=== PATIENT | female | born 1985 | race Caucasian/White ===

== ENCOUNTER → 2019-02-10 | Outpatient (CLI) | payer OTHER ==
[2019-02-10 15:07] LABS: ALBUMIN 3.4 g/dL (3.4-5.0); ALBUMIN/GLOBULIN RATIO 0.7 (1.0-1.7); ALK PHOS 78 U/L (46-116); ALT (SGPT) 28 U/L (14-59); ANION GAP 8 (6-14); AST (SGOT) 25 U/L (15-37); BLOOD UREA NITROGEN 9 mg/dL (7-20); BUN/CREATININE RATIO 11 (6-20); CALCIUM 9.3 mg/dL (8.5-10.1); CARBON DIOXIDE 29 mmol/L (21-32); CHLORIDE 100 mmol/L (98-107); CREATININE 0.8 mg/dL (0.6-1.0); DIG 1.7 ng/dL (0.9-2.0); GFR 82.1; GLUCOSE 77 mg/dL (70-99); MAGNESIUM 1.9 mg/dL (1.8-2.4); POTASSIUM 4.6 mmol/L (3.5-5.1); SODIUM 137 mmol/L (136-145); TOTAL BILIRUBIN 0.2 mg/dL (0.2-1.0)
== END | disposition home or self-care (01) ==
LOC: LAB 13:56
PROVIDERS: ATTEND Internal Medicine Cardiovascular Disease
DX: I47.1 Supraventricular tachycardia (principal)
CPT/HCPCS: 36415; 80053; 80162; 83735

== ENCOUNTER → 2019-02-24 | Outpatient (CLI) | payer OTHER ==
--- NOTE | 2019-02-24 08:50 | CARD ---
MR#: [id number] Date of Study: 02/24/2019 Ordering Physician: LULI AYALA, Referring Physician: LULI AYALA, Tech: Ambar Whittington [facility] APPROVED REPORT EXAM: Two-dimensional and M-mode echocardiogram with Doppler and color Doppler. Other Information Quality : AverageHR: 87bpm Rhythm : NSR INDICATION Arrhythmia 2D DIMENSIONS RVDd2.4 (2.9-3.5cm)Left Atrium(2D)3.1 (1.6-4.0cm) IVSd0.6 (0.7-1.1cm)Aortic Root(2D)2.3 (2.0-3.7cm) LVDd4.5 (3.9-5.9cm)LVOT Diameter1.9 (1.8-2.4cm) PWd0.7 (0.7-1.1cm)LVDs2.9 (2.5-4.0cm) FS (%) 35.2 %SV60.9 ml LVEF(%)64.6 (>50%) M-Mode DIMENSIONS Left Atrium(MM)2.34 (2.5-4.0cm)Aortic Root2.52 (2.2-3.7cm) Aortic Valve AoV Peak Shakir.151.6cm/sAoV VTI30.2cm AO Peak GR.9.2mmHgLVOT Peak Shakir.109.9cm/s LVOT VTI 23.81cmAO Mean GR.4mmHg ELO (VMAX)1.68he9AXB (VTI)2.13cm2 Mitral Valve MV E Etnjfodd92.9cm/sMV DECEL TYOW787ms MV A Wqmsbprs13.5cm/sE/A Ratio1.4 Pulmonary Valve PV Peak Vuesutgd259.3cm/sPV Peak Grad.5mmHg Pulmonary Vein S1 Ofprsafj69.3cm/sD2 Tyqazome51.2cm/s LEFT VENTRICLE The left ventricle is normal size. There is normal left ventricular wall thickness. The left ventricu lar systolic function is normal. The Ejection Fraction is 60-65%. There is normal LV segmental wall m otion. The left ventricular diastolic function and filling is normal for age. RIGHT VENTRICLE The right ventricle is normal size. There is normal right ventricular wall thickness. The right ventr icular systolic function is normal. ATRIA The left atrium size is normal. The right atrium size is normal. The interatrial septum is intact wit h no evidence for an atrial septal defect or patent foramen ovale as noted on 2-D or Doppler imaging. AORTIC VALVE The aortic valve is probably trileaflet. The aortic valve is not well visualized. Doppler and Color F low revealed no significant aortic regurgitation. There is no significant aortic valvular stenosis. MITRAL VALVE The mitral valve is normal in structure and function. There is no evidence of mitral valve prolapse. There is no mitral valve stenosis. Doppler and Color-flow revealed trace mitral regurgitation. TRICUSPID VALVE The tricuspid valve is normal in structure and function. Doppler and Color Flow revealed no tricuspid valve regurgitation noted. There is no tricuspid valve prolapse or vegetation. There is no tricuspid valve stenosis. PULMONIC VALVE The pulmonic valve is not well visualized. GREAT VESSELS The aortic root is normal in size. The ascending aorta is normal in size. The IVC is normal in size a nd collapses >50% with inspiration. PERICARDIAL EFFUSION There is no evidence of significant pericardial effusion. Critical Notification Critical Value: No <Conclusion> The left ventricular systolic function is normal. The Ejection Fraction is 60-65%. There is normal LV segmental wall motion. Doppler and Color-flow revealed trace mitral regurgitation. There is no evidence of significant pericardial effusion. Signed by : Krystian Dee, Electronically Approved : 02/24/2019 08:49:33
== END | disposition home or self-care (01) ==
LOC: ECHO 07:22 → EDUNIT# 08:00
PROVIDERS: ATTEND Internal Medicine Cardiovascular Disease
DX: I47.1 Supraventricular tachycardia (principal)
CPT/HCPCS: 93306

== ENCOUNTER → 2019-05-26 | Outpatient (CLI) | payer OTHER ==
--- NOTE | 2019-05-27 08:22 | RAD ---
PROCEDURE: KNEE RIGHT 3V STUDY DATE: 05/27/2019 CLINICAL INDICATION / HISTORY: Right knee pain after twisting injury. TECHNIQUE: AP, lateral, and oblique views of the right knee. COMPARISON: None FINDINGS: The osseous structures are intact. The articular surfaces are smooth. The joint space is maintained. No intra-articular loose bodies. The alignment is within normal limits. The soft tissues are unremarkable. No obvious joint effusion. No radio-opaque foreign bodies are identified. IMPRESSION: No fracture or dislocation is identified. Electronically signed by: Bk Woodson MD (05/27/2019 8:19 AM) [facility]
== END | disposition home or self-care (01) ==
LOC: LAB 18:52
PROVIDERS: ATTEND Family Medicine
DX: M25.561 Pain in right knee (principal)
CPT/HCPCS: 73562

== ENCOUNTER → 2020-03-29 | Outpatient (CLI) | payer OTHER ==
--- NOTE | 2020-03-29 18:37 | RAD ---
Examination: FOOT LEFT 3V History: Reason: Left foot pain and swelling, no trauma / Spl. Instructions: / History: Comparison/Correlation: None Findings: 3 views of the left foot were obtained. Joint spaces are normal. No fracture or bony destruction. Soft tissues are unremarkable. No significant degenerative findings for patient's age. Impression: No suspicious process. Electronically signed by: Marco Tamayo MD (03/29/2020 6:35 PM) [facility]
== END ==
LOC: RAD 17:54
PROVIDERS: ATTEND Physician Assistant
DX: M79.672 Pain in left foot (principal)
CPT/HCPCS: 73630

== ENCOUNTER → 2020-07-15 | Outpatient (CLI) | payer OTHER ==
--- NOTE | 2020-07-15 18:36 | RAD ---
Exam: CT head and maxillofacial without contrast INDICATION: Fall 3 weeks ago, pain across forehead TECHNIQUE: Sequential axial images through the head and face were obtained without the administration of IV contrast. Comparisons: None FINDINGS: Head: No focal parenchymal lesion or hemorrhage is identified. There is no midline shift or sulcal effaceme nt. No acute vascular territory infarction is identified. Young-white distinction is preserved. The ventricular system is within normal limits without compression hydrocephalus. The basal cisterns are well maintained. Face: Globes and orbital contents are normal. The visualized portions of the paranasal sinuses and mastoid air cells are well-pneumatized. No acute fractures. IMPRESSION: 1. No acute intracranial abnormality. 2. No acute traumatic injury identified at the face. Exposure: One or more of the following in the visualized dose reduction techniques were utilized for this examination: 1. Automated exposure control 2. Adjustment of the MA and/or KV according to patient size Use of iterative of reconstructive technique Electronically signed by: Lindsay Sosa MD (07/15/2020 6:34 PM) [facility]
== END ==
LOC: DXRAD 18:01
PROVIDERS: ATTEND Nurse Practitioner Family
DX: R51.9 Headache, unspecified (principal)
CPT/HCPCS: 70450; 70486

== ENCOUNTER → 2020-08-02 | Outpatient (CLI) | payer OTHER ==
--- NOTE | 2020-08-02 18:54 | CARD ---
MR#: [id number] Date of Study: 08/02/2020 Ordering Physician: LULI AYALA, Referring Physician: LULI AYALA, Tech: Julee Worley, [facility] APPROVED REPORT EXAM: Two-dimensional and M-mode echocardiogram with Doppler and color Doppler. Other Information Quality : AverageHR: 99bpm INDICATION Palpitations 2D DIMENSIONS RVDd2.2 (2.9-3.5cm)Left Atrium(2D)2.3 (1.6-4.0cm) IVSd0.8 (0.7-1.1cm)Aortic Root(2D)2.5 (2.0-3.7cm) LVDd4.5 (3.9-5.9cm)LVOT Diameter1.9 (1.8-2.4cm) PWd0.7 (0.7-1.1cm)LVDs2.8 (2.5-4.0cm) FS (%) 36.8 %SV61.5 ml LVEF(%)66.7 (>50%) Aortic Valve AoV Peak Shakir.132.5cm/sAoV VTI23.5cm AO Peak GR.7.0mmHgLVOT Peak Shakir.129.5cm/s LVOT VTI 20.32cmAO Mean GR.4mmHg ELO (VMAX)2.47hj2ZYG (VTI)2.48cm2 Mitral Valve MV E Ctvxnyjy27.4cm/sMV DECEL [id number] MV A Tubrvrit30.2cm/sE/A Ratio0.9 Pulmonary Valve PV Peak Abolezdd99.3cm/sPV Peak Grad.3mmHg Pulmonary Vein S1 Okcfnsrb92.1cm/sD2 Qrmcbtwf22.7cm/s LEFT VENTRICLE The left ventricle is normal size. There is normal left ventricular wall thickness. The left ventricu lar systolic function is normal. The Ejection Fraction is 55-60%. There is normal LV segmental wall m otion. RIGHT VENTRICLE The right ventricle is normal size. There is normal right ventricular wall thickness. The right ventr icular systolic function is normal. ATRIA The left atrium size is normal. The right atrium size is normal. The interatrial septum is intact wit h no evidence for an atrial septal defect or patent foramen ovale as noted on 2-D or Doppler imaging. AORTIC VALVE The aortic valve is normal in structure and function. Doppler and Color Flow revealed no significant aortic regurgitation. There is no significant aortic valvular stenosis. Calculated aortic valve area is 2.8 cm2 with maximum pressure gradient of 7 mmHg and mean pressure gradient of 4 mmHg. MITRAL VALVE The mitral valve is normal in structure and function. There is no evidence of mitral valve prolapse. There is no mitral valve stenosis. Doppler and Color-flow revealed trace mitral regurgitation. TRICUSPID VALVE The tricuspid valve is normal in structure and function. Doppler and Color Flow revealed no tricuspid valve regurgitation noted. There is no tricuspid valve stenosis. PULMONIC VALVE The pulmonic valve is not well visualized. Doppler and Color Flow revealed trace pulmonic valvular re gurgitation. GREAT VESSELS The aortic root is normal in size. The IVC is normal in size and collapses >50% with inspiration. PERICARDIAL EFFUSION There is no evidence of significant pericardial effusion. Critical Notification Critical Value: No <Conclusion> The left ventricular systolic function is normal. The Ejection Fraction is 55-60%. There is normal LV segmental wall motion. Trace mitral regurgitation. There is no evidence of significant pericardial effusion. Signed by : Krystian Dee, Electronically Approved : 08/02/2020 18:53:44
== END ==
LOC: ECHO 12:44
PROVIDERS: ATTEND Internal Medicine Cardiovascular Disease
DX: R00.2 Palpitations (principal)
CPT/HCPCS: 93306

== ENCOUNTER → 2020-12-15 | Outpatient (CLI) | payer OTHER ==
--- NOTE | 2020-12-15 10:52 | RAD ---
EXAM: Abdomen sonogram. HISTORY: Right upper quadrant pain. TECHNIQUE: Sonographic imaging of the abdomen was performed. COMPARISON: None. FINDINGS: The liver is normal in size. No focal hepatic lesion is seen. There is gallbladder sludge. There is no evidence of cholecystitis. The common bile duct is obscured. The right kidney is partiall y obscured. There is no hydronephrosis. The pancreas, inferior vena cava and aorta are obscured due t o bowel gas. IMPRESSION: 1. Gallbladder sludge. There is no convincing cholecystitis. 2. Partially obscured right kidney and predominantly obscured midline structures due to bowel gas. Electronically signed by: Crystal Shi MD (12/15/2020 10:50 AM) [id number]
== END ==
LOC: US 09:52
PROVIDERS: ATTEND Nurse Practitioner Family
DX: R10.11 Right upper quadrant pain (principal); K82.8 Other specified diseases of gallbladder
CPT/HCPCS: 76705